=== PATIENT | male | born 1995 | race American Indian/Alaskan Native ===

== ENCOUNTER 2017-10-31 15:29 | Emergency (ER) | payer BC ==
[2017-10-31 15:45] VITALS: TEMP 98.8; O2SAT 99; BMI 29.0
--- NOTE | 2017-10-31 16:42 | ED PDOC ---
Arrival/HPI - General Chief Complaint: Medical Clearance Time Seen by Provider: 10/31/17 16:31 Historian: Patient - History of Present Illness Narrative History of Present Illness (Text): 10/31/17 17:40 21-year-old male presents today for day 3 of his rabies vaccine. Patient states he was seen in the emergency room for concern for exposure to rabies. Patient denies headaches dizziness or weakness. Denies fevers or chills. Patient states he's feeling much better than he was feeling the other day. No other complaints Past Medical History - Provider Review Nursing Documentation Reviewed: Yes - Travel History Have you recently traveled outside [place] w/in the past 3 mons?: No - Infectious Disease Hx of Infectious Diseases: None - Psychiatric Hx Substance Use: No - Anesthesia Hx Anesthesia: No Family/Social History - Physician Review Nursing Documentation Reviewed: Yes Family/Social History: Unknown Family HX Smoking Status: Never Smoked Hx Alcohol Use: No Hx Substance Use: No Allergies/Home Meds Allergies/Adverse Reactions: Allergies No Known Allergies Allergy (Verified 10/31/17 16:41) Review of Systems - Review of Systems Constitutional: absent: Fatigue, Fevers Respiratory: absent: SOB, Cough Cardiovascular: absent: Chest Pain, Palpitations Gastrointestinal: absent: Abdominal Pain, Constipation, Diarrhea, Nausea, Vomiting Musculoskeletal: absent: Arthralgias, Back Pain, Neck Pain Skin: absent: Rash, Pruritis Neurological: absent: Headache, Dizziness Physical Exam Vital Signs Reviewed: Yes Vital Signs Temp Pulse Resp BP Pulse Ox 10/31/17 17:45 98.8 F 70 18 145/80 99 10/31/17 15:33 98.8 F 68 16 159/95 H 99 Temperature: Afebrile Blood Pressure: Hypertensive Pulse: Regular Respiratory Rate: Normal Appearance: Positive for: Well-Appearing, Non-Toxic, Comfortable Pain Distress: None Mental Status: Positive for: Alert and Oriented X 3 - Systems Exam Head: Present: Atraumatic Respiratory/Chest: Present: Clear to Auscultation Cardiovascular: Present: Regular Rate and Rhythm Neurological: Present: GCS=15, Speech Normal Skin: Present: Warm, Dry, Normal Color. No: Rashes Psychiatric: Present: Alert, Oriented x 3 Medical Decision Making ED Course and Treatment: 10/31/17 19:34 Patient is nontoxic well-appearing in no distress. Vital signs are stable. Patient presents for day 3 of his rabies vaccine Rabies vaccine given Patient was advised to return on November 04 and November 11 for the remainder of his rabies vaccination Patient was advised immediate return if symptoms worsen persist or if new concerning symptoms develop Patient verbalizes understanding of discharge instructions and need for immediate followup. all aspects of this case were discussed the attending of record. Impression: Rabies vaccine Follow-up with the primary care physician Return on November 04 in November 11 for the continuation of rabies vaccine Return immediately if symptoms worsen persist or if new concerning symptoms develop - Medication Orders Current Medication Orders: Discontinued Medications Rabies Vaccine Human Diploid Cell (Imovax Rabies) 2.5 units IM .ONCE ONE Stop: 10/31/17 16:42 Last Admin: 10/31/17 17:36 Dose: 2.5 units MAR Immunization Data Document 10/31/17 17:36 [place] (Rec: 10/31/17 17:36 [place] [id number]) Immunization Data Vaccine Information Sheet Given Yes Immunization Registry Document 10/31/17 17:36 [place] (Rec: 10/31/17 17:36 [place] [id number]) Immunization Registry Consent Date 10/31/17 Disposition/Present on Arrival - Present on Arrival Any Indicators Present on Arrival: No History of DVT/PE: No History of Uncontrolled Diabetes: No Urinary Catheter: No History of Decub. Ulcer: No History Surgical Site Infection Following: None - Disposition Have Diagnosis and Disposition been Completed?: Yes Diagnosis: Rabies, need for prophylactic vaccination against Disposition: HOME/ ROUTINE Disposition Time: 16:41 Patient Plan: Discharge Condition: GOOD Additional Instructions: Follow-up with the primary care physician Return on November 04November 11 for the continuation of rabies vaccine Return immediately if symptoms worsen persist or if new concerning symptoms develop Referrals: Kip Angulo MD [Medical Doctor] - Follow up with primary Forms: Jini (Danish), WORK NOTE
[2017-10-31 17:45] VITALS: BP 145/80; PULSE 70; RESP 18
== END 2017-10-31 17:45 | disposition home or self-care (01) ==
LOC: ED 15:29
DX: Z23 Encounter for immunization (principal)